=== PATIENT | female | born 1995 | race Two or more races ===

== ENCOUNTER 2017-07-22 15:00 | Inpatient (IN) | payer OTHER ==
[~2017-07-22] VITALS: Ht 152.4 cm; Wt 51.7 kg
[2017-08-05] MEDS ORDERED: PRENATAL TABLE1 EAC1 PO (20:11)
[2017-08-07] MEDS ORDERED: DOCUSATE SODIU100 MG PO (08:20)
== END 2017-08-07 12:02 | DRG 775 ==
LOC: OB/GYN 08-05 18:17 → LDR 08-05 18:17 → OB/GYN 08-05 21:50
PROC: 10E0XZZ Delivery of Products of Conception, External Approach (ICD-10-PCS; principal; 2017-08-05)
PROC: 0DQR0ZZ Repair Anal Sphincter, Open Approach (ICD-10-PCS; 2017-08-05)
PROC: 10E0XZZ Delivery of Products of Conception, External Approach (ICD-10-PCS; 2017-08-05)
PROC: 0W8NXZZ Division of Female Perineum, External Approach (ICD-10-PCS; 2017-08-05)
PROC: 4A1HXCZ Monitoring of Products of Conception, Cardiac Rate, External Approach (ICD-10-PCS; 2017-08-05)
DX: O70.21 Third degree perineal laceration during delivery, IIIa (principal); Z37.0 Single live birth; Z3A.39 39 weeks gestation of pregnancy